=== PATIENT | male | born 1950 | race Caucasian/White ===

== ENCOUNTER 2019-04-08 09:11 | Day surgery (SDC) | payer OTHER ==
[~2019-04-08] VITALS: Ht 172.7 cm; Wt 124.5 kg
[~2019-04-08 09:11] MED LIST: ACET325 PO; ALLO300 PO; ASPI81CH PO; DULO60 PO; EZET10 PO; FENO145 PO; FURO20 PO; HYDR1TAB94 PO; Indomethacin25 MG PO; KLOR-CON M1010 MEQ PO; LATA.005SO BOTHEYES; LISI20 PO; METO25ER PO; MUPIROCIN15 GM TOP; ROPINROLE PO; Vitamin D2000 UNIT PO; [UNRECOGNIZED DRUG - OTHER] PO
[2019-04-08 09:48] LABS: BASOPHILS ABSOLUTE AUTO 0.08 K/mm3 (0.00-0.23); BASOPHILS PERCENT AUTO 1 % (0-2); EOSINOPHILS ABSOLUTE AUTO 0.49 K/mm3 (0.00-0.68); EOSINOPHILS PERCENT AUTO 5 % (0-6); Hemoglobin 15.7 g/dL (13.5-17.5); IMMATURE GRAN ABSOLUTE AUTO 0.05 K/mm3 (0.00-0.10); IMMATURE GRAN PERCENT AUTO 1 % (0-1); LYMPHOCYTES ABSOLUTE AUTO 2.41 K/mm3 (0.84-5.20); LYMPHOCYTES PERCENT AUTO 24 % (21-46); MONOCYTES ABSOLUTE AUTO 0.62 K/mm3 (0.16-1.47); MONOCYTES PERCENT AUTO 6 % (4-13); Mean Corpuscular HGB 28.2 pg (26.0-34.0); Mean Corpuscular HGB Conc 32.7 g/dL (31.5-36.5); Mean Corpuscular Volume 86 fL (80-100); Mean Platelet Volume 9.8 fL (9.1-12.4); NEUTROPHILS ABSOLUTE AUTO 6.34 K/mm3 (1.96-9.15); NEUTROPHILS PERCENT AUTO 64 % (41-73); Platelet Count 210 K/mm3 (150-400); RDW Coefficient Variation 12.7 % (11.7-14.2); RDW Standard Deviation 39.9 fL (35.1-46.3); Red Blood Cell Count 5.57 M/mm3 (4.30-5.90); White Blood Cell Count 9.99 K/mm3 (4.00-11.30)
[2019-04-08] MEDS ORDERED: OZEMPIC1 MG/0.75 SC (09:52)
[2019-04-08] MEDS ORDERED: PREG25 (09:52)
[2019-04-08] MEDS ORDERED: TOLT4 PO (09:54)
[2019-04-08] MEDS ORDERED: MESA250ER PO (09:54)
[2019-04-08] MEDS ORDERED: INSULIN U-500 SC (09:55)
[2019-04-08 10:01] LABS: Alanine Aminotransfer (ALT/SGP 18 U/L (12-78); Albumin, Blood 3.7 g/dL (3.4-5.0); Albumin/Globulin Ratio 0.9 (0.8-1.8); Alk Phos 77 U/L (50-136); Anion Gap 5 mmol/L (6-16); Aspartate Aminotrans (AST/SGOT 17 U/L (12-37); Bilirubin, Total 0.5 mg/dL (0.1-1.0); Blood Urea Nitrogen 19 mg/dL (8-24); Bun/Creatinine Ratio 22.1 (12.0-20.0); CO2, Blood 28 mmol/L (21-32); Calcium, Blood 9.2 mg/dL (8.5-10.1); Chloride, Blood 108 mmol/L (98-108); Creatinine, Blood 0.86 mg/dL (0.60-1.20); Globulin, Blood 4.2 g/dL (2.2-4.0); Glomerular Filtration Rate >60 (60-); Glucose, Blood 87 mg/dL (70-99); Sodium, Blood 141 mmol/L (136-145); Total Protein, Blood 7.9 g/dL (6.4-8.2)
[2019-04-08 10:08] LABS: International Normalized Ratio 0.98; Prothrombin Time Results 10.4 Sec (9.7-11.5)
--- NOTE | 2019-04-08 15:30 | NUR ---
IV DC'D, CATH INTACT. PT VERBALIZED UNDERSTANDING OF DC INSTRUCTIONS AND FOLLOW UP INFO. OUT TO CAR VIA W/C.
== END 2019-04-08 15:30 | disposition home or self-care (01) ==
LOC: MHTC 09:11
PROVIDERS: Internal Medicine Cardiovascular Disease
PROC: 4A023N7 Measurement of Cardiac Sampling and Pressure, Left Heart, Percutaneous Approach (ICD-10-PCS; principal; 2019-04-08)
PROC: B201YZZ Plain Radiography of Multiple Coronary Arteries using Other Contrast (ICD-10-PCS; principal; 2019-04-08)
PROC: B203YZZ Plain Radiography of Multiple Coronary Artery Bypass Grafts using Other Contrast (ICD-10-PCS; principal; 2019-04-08)
DX: I25.119 Atherosclerotic heart disease of native coronary artery with unspecified angina pectoris (principal); I25.719 Atherosclerosis of autologous vein coronary artery bypass graft(s) with unspecified angina pectoris; I25.82 Chronic total occlusion of coronary artery; J44.9 Chronic obstructive pulmonary disease, unspecified; E03.9 Hypothyroidism, unspecified; E11.9 Type 2 diabetes mellitus without complications; E78.5 Hyperlipidemia, unspecified; I10 Essential (primary) hypertension; I25.2 Old myocardial infarction; Z87.891 Personal history of nicotine dependence; Z88.5 Allergy status to narcotic agent; Z88.6 Allergy status to analgesic agent; Z88.4 Allergy status to anesthetic agent; Z88.0 Allergy status to penicillin; Z88.8 Allergy status to other drugs, medicaments and biological substances; Z88.1 Allergy status to other antibiotic agents; Z79.899 Other long term (current) drug therapy; Z79.4 Long term (current) use of insulin
CPT/HCPCS: 76937; 80053; 82947; 85025; 85610; 93454; 99152; 99153; C1769; C1894; J1644; J2250; J3010; J7030; Q9967

== ENCOUNTER 2019-12-31 18:41 | Observation (INO) | payer OTHER, MEDICARE ==
[~2019-12-31] VITALS: Ht 172.7 cm; Wt 134.4 kg
[~2019-12-31 18:41] MED LIST changes: -ALLO300 PO; -DULO60 PO; -EZET10 PO; -FURO20 PO; -HYDR1TAB94 PO; -KLOR-CON M1010 MEQ PO; -LISI20 PO; +MESA250ER PO; -METO25ER PO; +TOLT4 PO; -Vitamin D2000 UNIT PO; -[UNRECOGNIZED DRUG - OTHER] PO
[2019-12-31 19:40] LABS: BASOPHILS ABSOLUTE AUTO 0.07 K/mm3 (0.00-0.23); BASOPHILS PERCENT AUTO 1 % (0-2); EOSINOPHILS ABSOLUTE AUTO 0.32 K/mm3 (0.00-0.68); EOSINOPHILS PERCENT AUTO 3 % (0-6); Hematocrit 42.7 % (37.0-53.0); Hemoglobin 13.9 g/dL (13.5-17.5); IMMATURE GRAN ABSOLUTE AUTO 0.07 K/mm3 (0.00-0.10); IMMATURE GRAN PERCENT AUTO 1 % (0-1); LYMPHOCYTES ABSOLUTE AUTO 1.74 K/mm3 (0.84-5.20); LYMPHOCYTES PERCENT AUTO 16 % (21-46); MONOCYTES ABSOLUTE AUTO 0.55 K/mm3 (0.16-1.47); MONOCYTES PERCENT AUTO 5 % (4-13); Mean Corpuscular HGB 28.7 pg (26.0-34.0); Mean Corpuscular HGB Conc 32.6 g/dL (31.5-36.5); Mean Corpuscular Volume 88 fL (80-100); NEUTROPHILS ABSOLUTE AUTO 8.12 K/mm3 (1.96-9.15); NEUTROPHILS PERCENT AUTO 75 % (41-73); Platelet Count 197 K/mm3 (150-400); RDW Coefficient Variation 14.4 % (11.7-14.2); RDW Standard Deviation 46.7 fL (35.1-46.3); Red Blood Cell Count 4.85 M/mm3 (4.30-5.90); White Blood Cell Count 10.87 K/mm3 (4.00-11.30)
[2019-12-31 20:09] LABS: Alanine Aminotransfer (ALT/SGP 17 U/L (12-78); Albumin, Blood 3.4 g/dL (3.4-5.0); Albumin/Globulin Ratio 0.9 (0.8-1.8); Alk Phos 87 U/L (50-136); Anion Gap 7 mmol/L (6-16); Aspartate Aminotrans (AST/SGOT 15 U/L (12-37); Bilirubin, Total 0.5 mg/dL (0.1-1.0); Blood Urea Nitrogen 9 mg/dL (8-24); CO2, Blood 29 mmol/L (21-32); Calcium, Blood 9.2 mg/dL (8.5-10.1); Chloride, Blood 101 mmol/L (98-108); Globulin, Blood 3.7 g/dL (2.2-4.0); Glomerular Filtration Rate >60 (60-); Glucose, Blood 338 mg/dL (70-99); Potassium, Blood 3.8 mmol/L (3.5-5.5); Sodium, Blood 137 mmol/L (136-145); Total Protein, Blood 7.1 g/dL (6.4-8.2)
[2019-12-31 20:10] LABS: Troponin I 0.072 ng/mL (0.000-0.040)
[2019-12-31] MEDS ORDERED: LISI20 PO (20:55)
[2019-12-31] MEDS ORDERED: EZET10 PO (20:56)
[2019-12-31] MEDS ORDERED: FURO20 PO (20:57)
[2019-12-31] MEDS ORDERED: Klor-Con 1010 MEQ PO (20:57)
[2019-12-31] MEDS ORDERED: METO100ER PO (20:58)
[2019-12-31] MEDS ORDERED: DULO60 PO (21:00)
[2019-12-31] MEDS ORDERED: Vitamin D2000 UNIT PO (21:00)
[2019-12-31] MEDS ORDERED: ALLO300 PO (21:00)
[2019-12-31] MEDS ORDERED: HYDROCODONE-AC1 EAC7 PO (21:01)
[2019-12-31] MEDS ORDERED: PREG200 PO (21:03)
[2019-12-31] MEDS ORDERED: HUMULIN R500 UNIT/1 SC (21:05)
[2019-12-31] MEDS ORDERED: Mirapex0.25 MG PO (21:06)
[2019-12-31] MEDS ORDERED: FAMO40 PO (21:06)
[2019-12-31] MEDS ORDERED: Isosorbide Mono30 MG PO (21:07)
[2019-12-31] MEDS ORDERED: BACIGUENT3.5 GM TOP (21:31)
[2019-12-31] MEDS ORDERED: OZEMPIC1 MG/0.71 SC (21:33)
[2019-12-31] MEDS ORDERED: FLUT.05NI (21:33)
[2019-12-31] MEDS ORDERED: LOPE2C PO (21:34)
[2020-01-01 03:25] LABS: BASOPHILS ABSOLUTE AUTO 0.06 K/mm3 (0.00-0.23); BASOPHILS PERCENT AUTO 1 % (0-2); EOSINOPHILS ABSOLUTE AUTO 0.37 K/mm3 (0.00-0.68); EOSINOPHILS PERCENT AUTO 3 % (0-6); Hematocrit 43.1 % (37.0-53.0); Hemoglobin 14.2 g/dL (13.5-17.5); IMMATURE GRAN ABSOLUTE AUTO 0.05 K/mm3 (0.00-0.10); IMMATURE GRAN PERCENT AUTO 1 % (0-1); LYMPHOCYTES ABSOLUTE AUTO 1.93 K/mm3 (0.84-5.20); LYMPHOCYTES PERCENT AUTO 18 % (21-46); MONOCYTES PERCENT AUTO 6 % (4-13); Mean Corpuscular HGB 28.9 pg (26.0-34.0); Mean Corpuscular HGB Conc 32.9 g/dL (31.5-36.5); Mean Corpuscular Volume 88 fL (80-100); Mean Platelet Volume 9.9 fL (9.1-12.4); NEUTROPHILS ABSOLUTE AUTO 7.82 K/mm3 (1.96-9.15); NEUTROPHILS PERCENT AUTO 72 % (41-73); Platelet Count 190 K/mm3 (150-400); RDW Coefficient Variation 14.2 % (11.7-14.2); RDW Standard Deviation 45.4 fL (35.1-46.3); Red Blood Cell Count 4.91 M/mm3 (4.30-5.90); White Blood Cell Count 10.83 K/mm3 (4.00-11.30)
[2020-01-01 03:44] LABS: Alanine Aminotransfer (ALT/SGP 13 U/L (12-78); Albumin, Blood 3.4 g/dL (3.4-5.0); Albumin/Globulin Ratio 0.9 (0.8-1.8); Alk Phos 92 U/L (50-136); Anion Gap 4 mmol/L (6-16); Aspartate Aminotrans (AST/SGOT 15 U/L (12-37); Bilirubin, Total 0.7 mg/dL (0.1-1.0); Blood Urea Nitrogen 11 mg/dL (8-24); Bun/Creatinine Ratio 12.6 (12.0-20.0); CO2, Blood 35 mmol/L (21-32); CPK Creatine Kinase 104 U/L (39-308); Calcium, Blood 9.2 mg/dL (8.5-10.1); Chloride, Blood 96 mmol/L (98-108); Creatinine, Blood 0.87 mg/dL (0.60-1.20); Globulin, Blood 3.6 g/dL (2.2-4.0); Glomerular Filtration Rate >60 (60-); Glucose, Blood 366 mg/dL (70-99); Potassium, Blood 3.9 mmol/L (3.5-5.5); Sodium, Blood 135 mmol/L (136-145); Troponin I 0.088 ng/mL (0.000-0.040)
--- NOTE | 2020-01-01 05:59 | NUR ---
SHIFT SUMMARY PT ER ADMIT THIS SHIFT FOR CHF EXAC. PT ON 4L O2, LUNGS ARE DIMINISHED T/O. PT COMPLAINED OF VERY MILD CHEST PAIN UPON ADMISSION 3 (0-10) SCALE, BUT PAIN WAS QUICKLY RELIEVED AFTER RECEIVING NORCO PER EMAR ORDERS. PT MAIN PAIN COMPLAINT WAS RELATED TO CHRONIC FOOT PAIN. PT NSR ON TELE WITH NO ACUTE CHANGES, HYPERTENSIVE UPON ADMISSION, BUT IMPROVED WITH REPEAT CHECK. PT WITHOUT N/V AND SKIN IS WARM AND DRY. DYSPNEA WITH EXERTION, BUT RESP E/U AT REST. TROPONIN'S SLIGHTLY BUMPED WITH REPEAT CHECK. PT CONTINUES TO DENY CHEST PAIN SINCE RECEIVING NORCO AND STATES HE FEELS FINE. TELE IN PLACE WITH NO CHANGES. RESIDENTIAL INSURANCE INSPECTOR ANDREA NOVA NOTIFIED OF BUMPED TROPONIN, PER DISSCUSION SHE STATES NO NEED TO NOTIFY PROVIDER AT THIS TIME SINCE THERE HAVE OTHERWISE BEEN NO CHANGES AND PT CONTINUES TO DENY CHEST PAIN. AWARE OF PT PRIOR COMPLAINTS OF CHEST PAIN. PT HAS BEEN A/OX4 PLESANT WITH CARE, MAKES NEEDS KNOWN. APPETITE GOOD. PT HAS BEEN AWAKE MOST OF THE NIGHT WATCHING TV. ADMISSION COMPLETE. BED IN LOWEST POSITION, CALL LIGHT WITHIN REACH.
[2020-01-01 12:06] LABS: Troponin I 0.069 ng/mL (0.000-0.040)
--- NOTE | 2020-01-01 17:51 | NUR ---
SHIFT SUMMARY PATIENT ALERT AND ORIENTED THIS SHIFT. PATIENT REPOSITIONS SELF IN BED. PATIENT USES URINAL. PATIENT USES CALL LIGHT APPROPRIATELY. PATIENT SITTING UP IN BED MOST OF THIS SHIFT WATCHING TELEVISION. PATIENT MEDICATED FOR PAIN THROUGHOUT THIS SHIFT PER EMAR. PATIENT NAPPED SEVERAL HOURS THIS AFTERNOON. PATIENT CURRENTLY SITTING UP IN BED WATCHING TELEVISION, EATING DINNER.
[2020-01-01 22:34] LABS: Source, Urine Clean Catch
[2020-01-01 22:37] LABS: Appearance, Urine Clear (Clear); Bilirubin, Urine Neg (Neg); Blood, Urine 4+ (Neg); Color, Urine Yellow (P-Yellow); Glucose Qualitative, Urine 4+ (Neg); Ketones, Urine 1+ (Neg); Leukocyte Esterase, Urine 1+ (Neg); Nitrite, Urine Neg (Neg); Protein, Urine 3+ (Neg); Urobilinogen, Urine NORM (Normal)
[2020-01-01 22:44] LABS: Bacteria Few /hpf; Hyaline Casts 0-2 /lpf (0-2); Squamous Epithelial Cells Few /hpf (Few)
[2020-01-02 05:07] LABS: BASOPHILS ABSOLUTE AUTO 0.07 K/mm3 (0.00-0.23); BASOPHILS PERCENT AUTO 1 % (0-2); EOSINOPHILS ABSOLUTE AUTO 0.41 K/mm3 (0.00-0.68); EOSINOPHILS PERCENT AUTO 5 % (0-6); Hematocrit 41.3 % (37.0-53.0); Hemoglobin 13.6 g/dL (13.5-17.5); IMMATURE GRAN ABSOLUTE AUTO 0.04 K/mm3 (0.00-0.10); IMMATURE GRAN PERCENT AUTO 1 % (0-1); LYMPHOCYTES ABSOLUTE AUTO 2.36 K/mm3 (0.84-5.20); LYMPHOCYTES PERCENT AUTO 31 % (21-46); MONOCYTES ABSOLUTE AUTO 0.45 K/mm3 (0.16-1.47); MONOCYTES PERCENT AUTO 6 % (4-13); Mean Corpuscular HGB 28.9 pg (26.0-34.0); Mean Corpuscular HGB Conc 32.9 g/dL (31.5-36.5); Mean Corpuscular Volume 88 fL (80-100); Mean Platelet Volume 10.4 fL (9.1-12.4); NEUTROPHILS ABSOLUTE AUTO 4.39 K/mm3 (1.96-9.15); NEUTROPHILS PERCENT AUTO 57 % (41-73); Platelet Count 190 K/mm3 (150-400); RDW Coefficient Variation 14.3 % (11.7-14.2); RDW Standard Deviation 46.1 fL (35.1-46.3); White Blood Cell Count 7.72 K/mm3 (4.00-11.30)
[2020-01-02 05:23] LABS: Anion Gap 3 mmol/L (6-16); Blood Urea Nitrogen 17 mg/dL (8-24); Bun/Creatinine Ratio 18.5 (12.0-20.0); CO2, Blood 37 mmol/L (21-32); Calcium, Blood 8.9 mg/dL (8.5-10.1); Chloride, Blood 97 mmol/L (98-108); Creatinine, Blood 0.92 mg/dL (0.60-1.20); Glomerular Filtration Rate >60 (60-); Glucose, Blood 249 mg/dL (70-99); Potassium, Blood 3.5 mmol/L (3.5-5.5); Sodium, Blood 137 mmol/L (136-145)
--- NOTE | 2020-01-02 05:25 | NUR ---
ALPINE PATROLLER SUMMARY PT A/O X4 WITH GARBLED SPEECH. THIS IS NO CHANGE FROM DAY REPORT. INCONT/CONTIENT TO BOWEL AND BLADDER. PT HAD 1 SMALL LIQUID BROWN BM OVERNIGHT. BED ALARM PLACED. CURRENTLY ASLEEP. MEDICATED FOR GENERALIZED PAIN ONCE OVERNIGHT. 4 L O2 VIA NC MAINTAINING SATS AT 92% AND ABOVE. VSS. NO ACUTE CHANGES. WILL CONTINUE TO MONITOR.
--- NOTE | 2020-01-02 06:28 | NUR ---
TEXTILES AND CLOTHING TEACHER SUMMARY PT A/O X4. HAS BEEN CALLING APPROPRIATELY. BED ALARM IS PLACED DUE TO RECENT FALL YESTERDAY REPORTED BY PREVIOUS SHIFT. MEDICATED FOR PAIN PER EMAR. CURRENTLY ON 3 L O2 VIA NC SATTING MAINTAINING SATS AT 92% OR ABOVE. SLEPT WELL TONIGHT. VSS. NO ACUTE CHANGES.
--- NOTE | 2020-01-02 18:33 | NUR ---
SHIFT SUMMARY PT IS AO. PT MEDICATED FOR PAIN X2 THIS SHIFT FOR CHRONIC PAIN IN KNEES, BACK, LEGS. PT DENIES N/V. PT IS A BIT SOB ON EXERTION. PT IS A STANDBY ASSIST IN ROOM. PT IS DIAPHORETIC THIS SHIFT, BUT AFEBRILE. PT IN SINUS RHYTHM WITH BUNDLE BRANCH BLOCK AND PVC'S THIS SHIFT. APPETITE IS GOOD. PT SLEEPING IN BED ON/OFF THROUGHOUT SHIFT. PT IS IN BED, CALL LIGHT IN REACH, LOW POSITION WITH BED ALARM ON.
--- NOTE | 2020-01-02 19:10 | NUR ---
ASSUMED CARE RECEIVED REPORT FROM ERICH POWER. ASSUMED CARE OF PT. RESTING COMFORTABLY AT THIS TIME, NO ACUTE DISTRESS NOTED. O2 SATS STABLE, PT DENIES SOB. RESPS E/U. DENIES NEEDS AT THIS TIME. CALL LIGHT, POSSESSIONS IN REACH, BED ALARMS ON. WILL CONTINUE TO MONITOR.
--- NOTE | 2020-01-03 05:46 | NUR ---
SHIFT SUMMARY PT HAS HAD AN UNEVENTFUL NIGHT. NO S/S ACUTE DISTRESS NOTED. O2 SATS STABLE ON CPAP WITH 4L/O2, BETWEEN 90-92%. RESPS E/U. NO C/O CP, PRESSURE, SOB. VSS. WAS MONITORED EVERY 1-2 HOURS WITH NEEDS MET. DENIES NEEDS AT THIS TIME. CALL LIGHT, POSSESSIONS IN REACH, WILL CONTINUE TO MONITOR.
[2020-01-03] MEDS ORDERED: ASPI81CH PO (11:36)
[2020-01-03] MEDS ORDERED: BASAGLAR K100 UNIT/1 SC (11:37)
--- NOTE | 2020-01-03 14:01 | NUR ---
DISCHARGE DISCHARGE INSTRUCTIONS, MEDICATION LIST AND FOLLOW UP APPOINTMENT REVIEWED WITH PT. QUESTIONS/CONCERNS ANSWERED. PT VERBALLY RESISTANT TO MAKING CHANGES TO MEDICATIONS, SAYS HE WILL SPEAK WITH HIS PCP. DISCHARGED HOME VIA W/C BY [facility]
== END 2020-01-03 13:59 | disposition home or self-care (01) ==
LOC: ER 18:41 → MEDS 18:43 → ER 20:39 → MEDS 20:39
PROVIDERS: Emergency Medicine; Internal Medicine; ADMIT Internal Medicine
DX: R07.89 Other chest pain (principal); I11.0 Hypertensive heart disease with heart failure; I50.43 Acute on chronic combined systolic (congestive) and diastolic (congestive) heart failure; E66.01 Morbid (severe) obesity due to excess calories; E11.42 Type 2 diabetes mellitus with diabetic polyneuropathy; E11.65 Type 2 diabetes mellitus with hyperglycemia; Z79.4 Long term (current) use of insulin; Z79.899 Other long term (current) drug therapy; Z20.828 Contact with and (suspected) exposure to other viral communicable diseases; E78.5 Hyperlipidemia, unspecified; Z88.1 Allergy status to other antibiotic agents; Z88.8 Allergy status to other drugs, medicaments and biological substances; Z88.0 Allergy status to penicillin; Z88.4 Allergy status to anesthetic agent; Z88.5 Allergy status to narcotic agent; J44.9 Chronic obstructive pulmonary disease, unspecified; J96.11 Chronic respiratory failure with hypoxia; Z79.82 Long term (current) use of aspirin; E78.00 Pure hypercholesterolemia, unspecified; Z68.41 Body mass index [BMI] 40.0-44.9, adult
CPT/HCPCS: 36415; 71045; 80048; 80053; 81001; 82550; 82947; 83880; 84484; 85025; 87077; 87086; 87186; 93005; 93010; 94660; 94762; 96374; 99285-25; A9270-GY; C8929; J1650; J1940; Q9957; U0002